=== PATIENT | male | born 1990 | race Hispanic/Latino ===

== ENCOUNTER 2019-09-06 14:04 | Observation (INO) | payer BC, OTHER ==
[~2019-09-06] VITALS: Ht 175.3 cm; Wt 53.5 kg
--- OUTSIDE RECORDS SUMMARY | 2019-09-06 14:07 | XMS REPORT ---
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 Allergies, Adverse Reactions, Alerts Allergy Name Allergy Type Status Severity Reaction(s) Onset Date Inactive Date Treating Clinician Comments No Known Allergies DA Active U 2019-07-26 00:00:00 No Known Allergies DA Active U 2013-09-14 00:00:00 Medications This patient has no known medications.
[2019-09-06 14:29] LABS: BASOPHILS % 0.4 % (0.0-1.0); EOSINOPHILS # (AUTO) 0.1 (0.0-0.4); EOSINOPHILS % 0.8 % (0.0-6.0); HEMATOCRIT 44.8 % (38.2-49.6); HEMOGLOBIN 16.2 g/dL (14.0-18.0); LYMPHOCYTES # (AUTO) 1.4 (1.0-3.2); LYMPHOCYTES % 13.1 % (18.0-39.1); MEAN CORPUSCULAR HEMOGLOBIN 32.8 pg (28-32); MEAN CORPUSCULAR HGB CONC 36.2 g/dL (31-35); MEAN CORPUSCULAR VOLUME 90.7 fL (81-99); MONOCYTES # (AUTO) 0.9 (0.2-0.8); MONOCYTES % 8.6 % (4.4-11.3); NEUTROPHILS # (AUTO) 8.1 (2.1-6.9); NEUTROPHILS % 76.7 % (38.7-80.0); PLATELET COUNT 243 x10e3/uL (140-360); RED BLOOD COUNT 4.94 x10e6/uL (4.3-5.7); RED CELL DISTRIBUTION WIDTH 11.7 % (11.7-14.4)
[2019-09-06 14:42] LABS: INR 0.98; PARTIAL THROMBOPLASTIN TIME 27.6 seconds (23.8-35.5); PROTHROMBIN TIME 13.6 seconds (11.9-14.5)
[2019-09-06 14:49] LABS: ALANINE AMINOTRANSFERASE 11 IU/L (0-55); ALBUMIN/GLOBULIN RATIO 1.2 (0.8-2.0); ALKALINE PHOSPHATASE 66 IU/L (40-150); ANION GAP 10.6 mmol/L (8-16); BLOOD UREA NITROGEN 9 mg/dL (7-26); BUN/CREATININE RATIO 10 (6-25); CALCIUM 9.3 mg/dL (8.4-10.2); CARBON DIOXIDE 24 mmol/L (22-29); CHLORIDE 106 mmol/L (98-107); CREATINE KINASE 66 IU/L (30-200); CREATININE, SERUM 0.88 mg/dL (0.72-1.25); EST GLOMERULAR FILTRATION RATE > 60 ML/MIN (60-); GLUCOSE 108 mg/dL (74-118); POTASSIUM 3.6 mmol/L (3.5-5.1); SODIUM 137 mmol/L (136-145)
[2019-09-06 14:55] LABS: SALICYLATE < 5.0 mg/dL (0-30)
[2019-09-06 14:55] LABS: CLARITY,URINE CLOUDY (CLEAR); COLOR,URINE YELLOW (YELLOW)
[2019-09-06 14:56] LABS: AMPHETAMINES SCREEN,URINE NEGATIVE (NEGATIVE); BENZODIAZEPINES SCREEN,URINE NEGATIVE (NEGATIVE); BILIRUBIN,URINE 1+ (NEGATIVE); KETONES,URINE 1+ (NEGATIVE); LEUKOCYTE ESTERASE ,URINE NEGATIVE (NEGATIVE); NITRITE,URINE NEGATIVE (NEGATIVE); PHENCYCLIDINE SCREEN,URINE NEGATIVE (NEGATIVE); PROTEIN,URINE DIPSTICK NEGATIVE (NEGATIVE); URINE UROBILINOGEN 0.2 mg/dL (0.2 - 1)
[2019-09-06 15:01] LABS: BACTERIA,URINE FEW /HPF; EPITHELIAL CELLS,URINE FEW /LPF
--- NOTE | 2019-09-06 15:47 | Diagnostic Imaging Report ---
TECHNIQUE: Frontal view of the chest. INDICATION: ^unresp ^[id number] ^[id number] COMPARISON: None IMPRESSION: Lines and hardware: None. Heart and mediastinum: Unremarkable. Lungs and pleura: No focal airspace consolidation. No pleural effusion. No pneumothorax. Soft tissues and bones: No acute abnormality. Signed by: Rahul Cam MD on 09/06/2019 3:44 PM
[2019-09-06 18:00] VITALS: BP 125/68
--- NOTE | 2019-09-06 18:07 | Consultation ---
DATE OF CONSULTATION: 09/06/2019 Cardiology Consultation INDICATIONS: Syncope/unresponsiveness. HISTORY OF PRESENT ILLNESS: Mr. Moore is a 29-year-old gentleman with no history of any medical problems. He was seen in [place] [facility] this weekend approximately 3 to 4 days ago, where he was found to be unresponsive. He was told he has a cardiac arrhythmia and needs to follow up with a clamp remover. He was scheduled for a treadmill stress test at [facility] in [place], [place] this morning. His history is very vague. He has lots of memory loss, unable to provide much history. He has no family or friends at bedside, but apparently during the stress test, he was unresponsive for long period of time including to painful stimuli. He was brought to the emergency room, where he continued to remain unresponsive. There was some suggestion he may need intubation as to the extent of his comatose nature. No arrhythmia is reported beside sinus tachycardia. No pauses. The patient denies past cardiac problems. PAST MEDICAL HISTORY: As listed above. SOCIAL HISTORY: The patient does not smoke or drink. He denies using any recent drugs or alcohol. MEDICATIONS: Reviewed. FAMILY HISTORY: Negative for premature coronary artery disease. REVIEW OF SYSTEMS: Negative except as dictated in the History of Present Illness. PHYSICAL EXAMINATION: VITAL SIGNS: Afebrile, heart rate 98, blood pressure is 108/75. CARDIOVASCULAR: Regular rhythm. No murmurs or gallops. LUNGS: Clear to auscultation bilaterally. ABDOMEN: Soft. Bowel sounds are adequate. LABORATORY DATA: Hemoglobin is 16.2. Serum creatinine is normal. Cardiac enzymes are negative. Drug screen is or negative. Alcohol level is undetectable. Chest x-ray shows no acute abnormalities. EKG shows sinus tachycardia. ASSESSMENT: Prolonged unresponsiveness, unknown etiology. RECOMMENDATIONS: Admission to inpatient, Cardiology with telemetry monitoring. Echocardiogram to evaluate for structural heart disease. The patient will require neurological imaging including CT scan of the head. Further neurological recommendations per neurologist. We will continue to follow from the cardiac standpoint, although cardiac reason for his symptoms including arrhythmia is low. We will exclude structural heart disease with obtaining an echocardiogram. MD CELI Sheth/MODKimi /[id number]
--- NOTE | 2019-09-06 18:20 | NUR ---
Patient arrived to floor at approximately 1730. Resting in bed. AAOX3. Acyanotic. No distress noted. Siderails up x2. Bed low. Call light in reach. Instructed to use call light for assistance. Verbalized understanding.
[2019-09-06 19:18] VITALS: BP 111/74
--- NOTE | 2019-09-06 19:19 | NUR ---
Resting in bed. Family members at bedside. No distress noted. Report given to WYATT Fernandez
[2019-09-06 21:00] VITALS: BP 111/74
[2019-09-07] VITALS (8 sets, daily range): BP systolic 91–170; BP diastolic 50–72
--- NOTE | 2019-09-07 07:00 | NUR ---
bedside shift report received from PM RN, pt in stable condition.
[2019-09-07 07:39] LABS: CREATINE KINASE MB 0.3 ng/mL (0-5.0)
--- NOTE | 2019-09-07 11:31 | Diagnostic Imaging Report ---
Exam: Head CT without contrast History: Syncope Comparison studies: None Technique: Axial images were obtained from the skull base to the vertex. Coronal and sagittal images reconstructed from the axial data. Dose modulation, iterative reconstruction, and/or weight based adjustment of the mA/kV was utilized to reduce the radiation dose to as low as reasonably achievable. Radiation dose: Total DLP: 832.18 mGy*cm. Estimated effective dose: DLP x 0.015 Intravenous contrast: None Findings: Scalp: No abnormalities. Bones: No fractures, blastic or lytic lesions. Brain sulci: Appropriate for age. Ventricles: Normal in size and configuration. No hydrocephalus. Extra-axial spaces: No masses, no fluid collection. Parenchyma: No abnormal densities. No masses, acute hemorrhage, acute or chronic vascular insults. Sellar/suprasellar region: No abnormalities. Craniocervical junction: Patent foramen magnum. No Chiari one malformation. Middle ear mastoid cavities: Clear. Included paranasal sinuses: Minimal mucosal thickening in the right frontal sinus and right middle ethmoid air cells. IMPRESSION: No intracranial abnormalities. Signed by: Dr. Soy Martinez M.D. on 09/07/2019 11:27 AM
[2019-09-08] VITALS: BP 112/57
[2019-09-08 04:00] VITALS: BP 107/61
--- NOTE | 2019-09-08 07:04 | NUR ---
Bedside shift report received from PM nurse; pt awake, alert, no signs of distress.
[2019-09-08 07:24] VITALS: BP 103/59
[2019-09-08 08:01] VITALS: BP 103/59
--- NOTE | 2019-09-08 10:03 | NUR ---
pt leaving for exercise nuclear stress test; leaving in stable condition.
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
[2019-09-08 12:09] VITALS: BP 101/59
[2019-09-08 15:40] VITALS: BP 106/63
--- NOTE | 2019-09-08 20:40 | Discharge Summary ---
PRIMARY CARE DOCTOR: Ivania Herbert MD FINAL DIAGNOSIS: Palpitation with syncope. CONSULTANTS: 1. Dr. Ramos, Cardiology. 2. Dr. Gallegos, Neurology. PROCEDURES/STUDIES PERFORMED: 1. Stress test. 2. Head CT. HISTORY: Per H and P. HOSPITAL COURSE: Despite him having palpitation, his telemetry monitoring remained sinus. Head CT was unremarkable. Neurology does not think this is a seizure. Currently, the patient is undergoing stress test, which I highly doubt that it will be abnormal. The patient will be discharged home this afternoon if the stress test is confirmed to be negative. I have updated the patient letting him know that even though we do not have a clear etiology, at least we have him ruled out all the serious stuff. The patient will follow up with his primary care doctor in a week. I have updated his primary care doctor as well. The patient was seen and examined today. CONDITION ON DISCHARGE: Improved. DISCHARGE MEDICATIONS: Please see medication reconciliation form. MD ZANDRA Finney/ZULLY /[id number] cc: [facility]
== END 2019-09-08 18:42 | disposition home or self-care (01) ==
LOC: ER 14:10 → ERHOLD 16:28 → ER 17:30 → MED/SURG2 18:15
PROVIDERS: ADMIT Internal Medicine; ATTEND Internal Medicine
DX: R55 Syncope and collapse (principal); R07.9 Chest pain, unspecified; R00.2 Palpitations
CPT/HCPCS: 36415; 70450; 71045; 78452; 80053; 80307; 80320; 80329; 81001; 82550; 82553; 84484; 85025; 85610; 85730; 93005; 93017; 93306; 99285; A9502; G0378